=== PATIENT | male | born 1980 | race Two or more races ===

== ENCOUNTER 2023-02-01 14:05 | Outpatient (REF) | payer MEDICAID, OTHER, SELFPAY ==
--- NOTE | ~2023-02-01 | XR_ITS ---
EXAMINATION: XR KNEE, RIGHT CLINICAL INFORMATION: Pain. Injury 2 days ago. COMPARISON: None available. TECHNIQUE: Four views of the right knee. FINDINGS: No acute fractures or subluxation. Mild tricompartmental joint space narrowing with minimal subcortical sclerosis, most prominent in the medial compartment. No chondrocalcinosis or erosions. Small joint effusion. No significant soft tissue abnormality. XR/XR knee RT 4V IMPRESSION: 1. No acute fractures or subluxation. 2. Mild tricompartmental osteoarthritis. 3. Small joint effusion.
== END 2023-02-01 14:06 | disposition home or self-care (01) ==
LOC: HO.HHCX 14:05
PROVIDERS: Visit Provider Emergency Medicine
DX: M23.91 Unspecified internal derangement of right knee (principal)
CPT/HCPCS: 73564

== ENCOUNTER 2023-03-29 13:32 | Outpatient (REF) | payer MEDICAID, OTHER, SELFPAY | END 2023-03-29 13:33 | disposition home or self-care (01) | LOC: HO.LAB 13:32 | PROVIDERS: PCP Family Medicine; Visit Provider Family Medicine | DX: R10.11 Right upper quadrant pain (principal) | CPT/HCPCS: 76700 ==

== ENCOUNTER 2023-03-29 13:45 | Outpatient (REF) | payer MEDICAID, OTHER, SELFPAY ==
[2023-03-29 17:15] LABS: Alanine Aminotransferase 17 U/L (0-40); Albumin Level 4.1 g/dL (3.5-5.0); Alkaline Phosphatase 66 U/L (39-117); Amylase 58 U/L (28-100); Anion Gap 14 (12-20); Aspartate Amino Transferase 25 U/L (5-37); Bilirubin Direct 0.3 mg/dL (0.0-0.5); Bilirubin Total 0.7 mg/dL (0.0-1.0); Blood Urea Nitrogen 16 mg/dL (9-16); Calcium 9.6 mg/dL (8.4-10.2); Carbon Dioxide 25 mmol/L (22-29); Chloride 106 mmol/L (96-108); Cholesterol 142 mg/dL; Estimated Glomerular Filt Rate > 60; Glucose Random 87 mg/dL (60-115); HDL Cholesterol 40 mg/dL; LDL Cholesterol Calculated 93 mg/dl; Lipase 17 U/L (8-78); Potassium 4.6 mmol/L (3.3-5.1); Sodium 140 mmol/L (135-145); Triglycerides 48 mg/dL
[2023-03-29 17:34] LABS: Free T4 (Free Thyroxine) 1.16 ng/dL (0.71-1.85); Thyroid Stimulating Hormone 0.62 uIU/mL (0.32-4.0); Vitamin D 25-OH Total 32.8 ng/mL (>30)
== END 2023-03-29 13:46 | disposition home or self-care (01) ==
LOC: HO.US 13:45
PROVIDERS: PCP Family Medicine; Visit Provider Family Medicine
DX: Z11.4 Encounter for screening for human immunodeficiency virus [HIV] (principal); R10.11 Right upper quadrant pain
CPT/HCPCS: 0353U; 76700; 80048; 80061; 80076; 82150; 82306; 83036; 83690; 84439; 84443; 85025; 86706; 86708; 86709; 86780; 86803; 87340; 87389

== ENCOUNTER 2023-06-01 17:53 | Outpatient (REF) | payer MEDICAID, OTHER, SELFPAY ==
[2023-06-01 18:55] LABS: Influenza A PCR NEGATIVE (Negative); Influenza B PCR NEGATIVE (Negative); Resp Syncy Virus RNA Qual PCR NEGATIVE (Negative); SARS COV2 PCR INHOUSE NEGATIVE (Negative)
== END 2023-06-01 17:54 | disposition home or self-care (01) ==
LOC: HO.LNP 17:53
PROVIDERS: Visit Provider Family Medicine
DX: Z20.822 Contact with and (suspected) exposure to COVID-19 (principal); J06.9 Acute upper respiratory infection, unspecified
CPT/HCPCS: 0241U

== ENCOUNTER 2023-07-17 14:48 | Outpatient (REF) | payer MEDICAID, OTHER, SELFPAY ==
--- NOTE | ~2023-07-17 | XR_ITS ---
EXAMINATION: XR CHEST CLINICAL INFORMATION: Chest pain. COMPARISON: None available. TECHNIQUE: 2 views of the chest were obtained. FINDINGS: The cardiomediastinal silhouette is normal. There is no focal lung consolidation or pleural effusion. The bony structures and soft tissues are unremarkable. XR/XR chest 2V IMPRESSION: No evidence for active cardiopulmonary disease.
== END 2023-07-17 14:49 | disposition home or self-care (01) ==
LOC: HO.HHCX 14:48
PROVIDERS: Visit Provider Emergency Medicine
DX: R07.89 Other chest pain (principal)
CPT/HCPCS: 71046

== ENCOUNTER 2023-07-24 12:54 | Outpatient (REF) | payer MEDICAID, OTHER, SELFPAY ==
--- NOTE | ~2023-07-24 | XR_ITS ---
EXAMINATION: XR KNEE, RIGHT CLINICAL INFORMATION: Right knee pain COMPARISON: Right knee radiograph from 02/01/2023 TECHNIQUE: Four views of the right knee. FINDINGS: No acute visible fracture or dislocation. Mild multicompartment degenerative changes. Mild narrowing medial femorotibial compartment. Joint space alignment are otherwise maintained. Trace knee joint effusion. Soft tissues are unremarkable. XR/XR knee RT 3V IMPRESSION: 1. No acute visible fracture or dislocation. 2. Mild multicompartment degenerative changes. 3. Trace knee joint effusion.
== END 2023-07-24 12:55 | disposition home or self-care (01) ==
LOC: HO.HHCX 12:54
PROVIDERS: Visit Provider Family Medicine
DX: M25.561 Pain in right knee (principal); G89.29 Other chronic pain
CPT/HCPCS: 73562

== ENCOUNTER 2023-08-21 12:42 | Outpatient (REF) | payer MEDICAID, OTHER, SELFPAY ==
--- NOTE | ~2023-08-21 | US_ITS ---
EXAMINATION: US SCROTUM CLINICAL INFORMATION: Right scrotal mass. COMPARISON: None available. TECHNIQUE: A sonogram of the scrotum was performed assessing branham-scale appearance and color Doppler flow. Spectral Doppler analysis of the arterial and venous flow were performed in the testes bilaterally. FINDINGS: RIGHT: Right testicle measures 4.8 x 1.9 x 3.0 cm, volume 14.8 mL. No focal testicular parenchymal lesions are visualized. Spectral Doppler analysis of the arterial and venous flow is normal in the right testis. 1.4 x 1.3 x 1.5 cm complex cyst with diffuse low-level internal echoes in the region of the right epididymal head. Right varicocele. No right hydrocele is seen. Right epididymal Doppler flow is normal. LEFT: Left testicle measures 4.4 x 1.7 x 2.6 cm, volume 10.3 mL. No focal testicular parenchymal lesions are visualized. Spectral Doppler analysis of the arterial and venous flow is normal in the left testis. Small 0.3 cm cyst left epididymal head. No left hydrocele or varicocele is seen. Left epididymal Doppler flow is normal. ADDITIONAL FINDINGS: Targeted ultrasound images were obtained by the earth science professor of the area of concern as indicated by the patient in the LEFT inguinal region demonstrate no discrete hernia or mass. Radiologist was not in attendance. Images were later provided for interpretation. US/US scrotum IMPRESSION: 1. Complex 1.5 cm cyst in the region of the right epididymal head. Tiny left epididymal head cysts. 2. Right varicocele. 3. No discrete hernia or mass identified in the area of concern indicated by the patient left inguinal region. CT scan could be considered for further evaluation.
== END 2023-08-21 12:43 | disposition home or self-care (01) ==
LOC: HO.US 12:42
PROVIDERS: PCP Family Medicine; Visit Provider Family Medicine
DX: N50.89 Other specified disorders of the male genital organs (principal)
CPT/HCPCS: 76870

== ENCOUNTER 2023-09-03 08:36 | Outpatient (REF) | payer MEDICAID, OTHER, SELFPAY ==
--- NOTE | ~2023-09-03 | CT_ITS ---
EXAMINATION: CT ABDOMEN WITH CONTRAST CLINICAL INFORMATION: Right upper quadrant abdominal pain. COMPARISON: Abdominal ultrasound 03/29/2023. TECHNIQUE: Contiguous axial thin section helical images of the abdomen were performed following the administration of oral contrast and 85 mL of Omnipaque 350 intravenous contrast. The data set was reformatted in the coronal and sagittal planes and reviewed on an independent workstation. This CT examination was performed using dose optimization techniques as appropriate, variously including the following: *Automated exposure control *Adjustment of mA and/or kV according to patient size (this includes techniques or standardized protocols for targeted exams where dose is matched to indication/reason for exam; i.e. extremities or head) *Use of iterative reconstruction technique DLP: 182 mGy-cm FINDINGS: LUNG BASES: No suspicious lung nodules. LIVER, GALLBLADDER, AND BILIARY TREE: The liver is homogeneous in attenuation. No suspicious liver mass. No biliary ductal dilatation. The gallbladder appears normal with no radiopaque gallstones. Common bile duct is normal in caliber. PANCREAS: No discrete pancreatic mass. No pancreatic ductal dilatation. No peripancreatic inflammation. SPLEEN: Normal size. No focal abnormality. ADRENAL GLANDS AND KIDNEYS: No adrenal mass. BOWEL LOOPS: Mild thickening and edema at the GE junction. Included segments of small and large bowel are normal in caliber. LYMPH NODES: No adenopathy. VASCULAR: No aortic aneurysm. Minimal infrarenal atherosclerosis. BONES: Mild degenerative changes in the lumbar spine. CT/CT abdomen w IV con IMPRESSION: Mild thickening and edema at the gastroesophageal junction may relate to esophagitis. Recommend endoscopy to exclude underlying lesion. Otherwise no acute findings in the abdomen. Fleischner guidelines were followed.
[2023-09-03] MEDS: iohexoL 350 MG/ML 100 ML INFUS..BTL 85 ML IV (10:35)
[2023-09-03] MEDS: Barium Sulfate Oral (Vanilla) 450 ML ORAL.SUSP 900 ML PO (10:37)
== END 2023-09-03 08:37 | disposition home or self-care (01) ==
LOC: HO.CT 08:36
PROVIDERS: PCP Family Medicine; Visit Provider Family Medicine
DX: R10.11 Right upper quadrant pain (principal)
CPT/HCPCS: 74160; Q9967

== ENCOUNTER 2023-10-19 10:22 | Outpatient (REF) | payer MEDICAID, OTHER, SELFPAY ==
[2023-10-19 12:54] LABS: HBS Num1 7.91 mIU/mL (0-7.99); ~Hepatitis B Surface Antibody NONREACTIVE (Nonreactive)
[2023-10-22 12:38] LABS: TS Negative Control Passed; TS Panel A 0; TS Panel B 1; TS Positive Control Passed; TSpotTB Negative (Negative)
[2023-10-23 02:48] LABS: Rubeola IgG (Measles) >300.00 AU/mL
[2023-10-23 13:51] LABS: H Pylori Breath Test Positive (Negative)
== END 2023-10-19 10:23 | disposition home or self-care (01) ==
LOC: HO.HHCL 10:22
PROVIDERS: Visit Provider Family Medicine
DX: Z00.00 Encounter for general adult medical examination without abnormal findings (principal); R10.11 Right upper quadrant pain
CPT/HCPCS: 36415; 83013; 86481; 86706; 86735; 86762; 86765; 86787

== ENCOUNTER 2023-12-06 15:06 | Outpatient (REF) | payer MEDICAID, OTHER, SELFPAY ==
--- NOTE | ~2023-12-06 | CT_ITS ---
EXAMINATION: CT CHEST WITH CONTRAST CLINICAL INFORMATION: Upper lobe nodules COMPARISON: Chest radiograph from 07/17/2023 TECHNIQUE: Multidetector volumetric CT imaging of the chest was obtained after the administration of 50 mL of Omnipaque 350 intravenous contrast without immediate adverse reactions. Axial MIP volume rendering provided. Sagittal and coronal reformatted images were obtained. This CT examination was performed using dose optimization techniques as appropriate, variously including the following: *Automated exposure control *Adjustment of mA and/or kV according to patient size (this includes techniques or standardized protocols for targeted exams where dose is matched to indication/reason for exam; i.e. extremities or head) *Use of iterative reconstruction technique DLP: 507 mGy-cm FINDINGS: LUNGS/PLEURA: Emphysematous changes. Peripheral reticular nodular opacities. 2 mm linear nodular focus anterior lateral aspect right lung apex (series 5, image 25). 2 mm pleural-based nodular focus left upper lobe laterally (series 5, image 71). Central airways are patent. No pneumothorax. No large pleural effusion. Bibasilar atelectasis. MEDIASTINUM: Heart is not enlarged. No pericardial effusion. No coronary artery calcifications. Aorta is nonaneurysmal and demonstrates atherosclerotic calcifications. Main pulmonary artery is not enlarged. No enlarged lymph nodes per size criteria. Visualized portions of the thyroid are unremarkable. AXILLA: No lymphadenopathy. UPPER ABDOMEN: Decreased hepatic attenuation suggesting hepatic steatosis. Small hiatal hernia. OSSEOUS STRUCTURES: Multilevel degenerative changes of the thoracolumbar spine. CT/CT chest w IV con IMPRESSION: 1. 2 mm linear nodular focus anterior lateral aspect right lung apex. 2 mm pleural-based nodular focus left upper lobe laterally. Follow-up as per Fleischner criteria. 2. Decreased hepatic attenuation suggesting hepatic steatosis. 3. Small hiatal hernia. Various management parameters for solitary pulmonary nodules are in the literature. According to the Fleischner Society, recommendations for pulmonary nodules are as follows: According to the UPDATED 2017 Fleischner Society recommendations, the advised follow-up imaging for solid nodules < 6 mm is: HIGH RISK PATIENT: Optional CT at 12 months.
--- NOTE | ~2023-12-06 | CT_ITS ---
EXAMINATION: CT PELVIS WITH CONTRAST CLINICAL INFORMATION: Scrotal mass with complex cyst COMPARISON: CT abdomen from 09/03/2023, ultrasound scrotum from 10/13/2022 TECHNIQUE: Helical scanning was performed with submillimeter collimation through the pelvis with the use of oral contrast and during bolus intravenous injection of 100 mL of Omnipaque 350 intravenous contrast. Sagittal and coronal multiplanar 2-D reconstructions were obtained. This CT examination was performed using dose optimization techniques as appropriate, variously including the following: *Automated exposure control *Adjustment of mA and/or kV according to patient size (this includes techniques or standardized protocols for targeted exams where dose is matched to indication/reason for exam; i.e. extremities or head) *Use of iterative reconstruction technique DLP: 507 mGy-cm FINDINGS: PELVIS: Visualized small and large bowel are unremarkable. Visualized portions of the appendix are unremarkable. Urinary bladder is unremarkable. Prostate measures 2.2 cm. No hernia identified. Abdominal aorta is nonaneurysmal. No lymphadenopathy noted. The scrotal/testicular parenchyma is not well evaluated on current imaging modality and better evaluated with ultrasound imaging. OSSEOUS STRUCTURES: Multilevel degenerative changes of the lumbosacral spine greatest at L4-L5. CT/CT pelvis w IV con IMPRESSION: 1. No acute process of the pelvis identified. 2. No hernia identified. 3. Scrotal/testicular parenchyma is not well evaluated on current imaging modality and better evaluated with ultrasound imaging.
[2023-12-06] MEDS: iohexoL 350 MG/ML 100 ML INFUS..BTL 85 ML IV (16:15)
== END 2023-12-06 15:07 | disposition home or self-care (01) ==
LOC: HO.CT 15:06
PROVIDERS: PCP Family Medicine; Visit Provider Internal Medicine
DX: N50.89 Other specified disorders of the male genital organs (principal); R93.89 Abnormal findings on diagnostic imaging of other specified body structures
CPT/HCPCS: 71260; 72193; Q9967

== ENCOUNTER 2024-05-08 11:42 | Outpatient (REF) | payer MEDICAID, OTHER, SELFPAY ==
[2024-05-08 13:15] LABS: Hemoglobin 13.9 g/dl (14.0-18.0); Mean Corpuscular HGB Conc 33.9 g/dl (31.0-36.0); Mean Corpuscular Volume 88.4 fL (80.0-98.0); Mean Platelet Volume 11.1 fL (9.4-12.4); Platelet Count 212 X10*3/uL (160-400); Red Blood Count 4.64 X10*6/uL (4.60-5.80); Red Cell Distribution Width 12.5 % (11.0-16.0); White Blood Count 6.8 X10*3/uL (4.8-10.8)
[2024-05-08 13:45] LABS: Creatinine Urine 140.52 mg/dL; Estimated Average Glucose 97 mg/dL; Microalbum/Creatinine Ratio Ur 17.7 ug/mg cr (<30)
[2024-05-08 13:49] LABS: Alanine Aminotransferase 20 U/L (0-40); Albumin Level 4.4 g/dL (3.5-5.0); Alkaline Phosphatase 56 U/L (39-117); Anion Gap 13 (12-20); Aspartate Amino Transferase 22 U/L (5-37); Bilirubin Direct 0.2 mg/dL (0.0-0.5); Bilirubin Total 0.6 mg/dL (0.0-1.0); Blood Urea Nitrogen 14 mg/dL (9-16); Calcium 9.5 mg/dL (8.4-10.2); Carbon Dioxide 25 mmol/L (22-29); Chloride 106 mmol/L (96-108); Cholesterol 137 mg/dL (<200); Estimated Glomerular Filt Rate > 60; Glucose Random 104 mg/dL (60-115); HDL Cholesterol 47 mg/dL (>40); LDL Cholesterol Calculated 77 mg/dL (<100); Sodium 140 mmol/L (135-145); Total Protein 6.8 g/dL (6.5-8.0); Triglycerides 65 mg/dL (<150)
[2024-05-08 14:06] LABS: Free T4 (Free Thyroxine) 1.01 ng/dL (0.71-1.85); Thyroid Stimulating Hormone 0.72 uIU/mL (0.32-4.0); Vitamin D 25-OH Total 44.2 ng/mL (>30)
[2024-05-09 04:02] LABS: HBS Num1 3.73 mIU/mL (0-7.99); HBsAGNum1 0.44 S/CO (0.00-0.99); HIV AB/AG Nonreactive (Nonreactive); HIV Num 1 0.05 S/CO (0.00-0.99); Hepatitis B Surface Antigen Negative (Negative); ~HepC Num1 0.14 S/CO (0.00-0.79); ~Hepatitis B Surface Antibody NONREACTIVE (Nonreactive); ~Hepatitis C Antibody Nonreactive (Nonreactive)
[2024-05-09 14:42] LABS: RPR Rapid Plasma Reagin NON-REACTIVE (NON-REACTIVE)
== END 2024-05-08 11:43 | disposition home or self-care (01) ==
LOC: HO.HHCL 11:42
PROVIDERS: Visit Provider Family Medicine
DX: Z00.00 Encounter for general adult medical examination without abnormal findings (principal); F43.10 Post-traumatic stress disorder, unspecified; N50.3 Cyst of epididymis; F17.200 Nicotine dependence, unspecified, uncomplicated; R91.8 Other nonspecific abnormal finding of lung field; R22.1 Localized swelling, mass and lump, neck; Z86.19 Personal history of other infectious and parasitic diseases; B07.0 Plantar wart; M25.511 Pain in right shoulder; R63.4 Abnormal weight loss; J34.2 Deviated nasal septum
CPT/HCPCS: 36415; 80048; 80061; 80076; 82043; 82306; 82570; 83036; 84439; 84443; 85027; 86592; 86706; 86803; 87340; 87389

== ENCOUNTER 2024-05-12 15:20 | Outpatient (REF) | payer MEDICAID, OTHER, SELFPAY | END 2024-05-12 15:21 | disposition home or self-care (01) | LOC: HO.HHCL 15:20 | PROVIDERS: Visit Provider Family Medicine | DX: Z86.19 Personal history of other infectious and parasitic diseases (principal) | CPT/HCPCS: 87338 ==

== ENCOUNTER 2025-05-12 15:23 | Outpatient (AMB) | payer OTHER, SELFPAY ==
--- NOTE | 2025-05-12 15:33 | A.OFFVIS_ITS ---
Vital Signs 05/12/25 15:38 Height 5 ft 6 in Weight 192 lb BMI 31.0 BP 140/88 H Blood Pressure Location Rt brachial Position Sitting Pulse 74 Intake Visit Reasons: (R) groin pain Intake Note: Patient is seen in office for evaluation of right groin pain. Reports pain started about 4m ago. Pt c/o:constant lifting patients at work. CT pelvis:12/06/23 Graphite Pan Drier Tender Required: No Accompanied by: spouse Zacarias Murillo Allergies No Known Allergies Allergy (Verified 05/12/25 15:34) HPI Comments Details: 45-year-old male patient presenting with complaints of abdominal pain in the right lower quadrant presenting today for evaluation for possible right inguinal hernia. 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 Lifting causes increased pain in the right groin. He denies feeling or seeing a lump in the groin. He denies associated symptoms including nausea, vomiting, diarrhea, constipation, fever or chills. He denies a previous history of hernias or hernia surgery. The pain does seem to extend into the testicle but he has a known right varicocele. CT abdomen and pelvis performed in 2023 revealed no evidence of an inguinal hernia on either side. [facility] Family History Mother Lymph node cancer Social History Tobacco use type: Cigarette Cigarettes Per Day: 20 Review of Systems Const All systems reviewed & are unremarkable except as noted in HPI and below Physical Exam Vital Signs: Last Vital Signs Pulse 74 05/12/25 15:38 BP 140/88 H 05/12/25 15:38 BMI result Body Mass Index 31.0 Const General: cooperative and no acute distress Nutritional Appearance: well nourished Orientation/consciousness: patient oriented x3 Limitations: no limitations HEENT Head: Yes normocephalic and Yes atraumatic Ears: hearing grossly normal bilaterally Resp Effort & Inspection: normal respiratory effort, no audible wheezes, no cough and no respiratory distress Cardio Jugular venous distension: no JVD GI Other: Soft and nondistended, tender along the rectus muscle laterally. Examination in the standing position with Valsalva maneuvers revealed no palpable hernia on either side. There is tenderness slightly higher than the internal ring suggestive of a muscle strain. Varicocele is also palpable in the right scrotum. Inspection: Yes normal to inspection Skin Other: Warm, dry, no rash Neuro General: patient oriented x3 Extrem General: Yes no clubbing, cyanosis or edema Assessment & Plan Assessment & Plan (1) Strain of right groin: Code(s): S76.211A - Strain of adductor muscle, fascia and tendon of right thigh, initial encounter Category: Medical Plan 45-year-old male patient presenting with complaints of pain in the right groin noted with lifting heavy objects and patient's. Previous workup with CT abdomen and pelvis was negative for a hernia. Examination today revealed no palpable hernia on either side by tenderness noted mainly in the muscular regions especially the lateral rectus muscle. Findings are suggestive of a muscle strain. No surgical intervention is recommended. We will refer him to urology for further evaluation of the varicocele. Orders: Referrals Urology Referral I86.1 - Scrotal varices Coding Level of Care Code New Pt Level 4 (60944) Diagnoses Strain of right groin S76.211A
[2025-05-12 15:38] VITALS: BP 140/88; PULSE 74; BMI 31.0
--- OUTSIDE RECORDS SUMMARY | 2025-05-12 16:40 | XMS_ITS | Clinical Summary ---
Author Organization [facility] Address [address] [place] [address] Care Team Providers Care Tax Collector Name Role Phone Nayeli Bansal Primary Care Provider [phone] Allergies No known active allergies Medications multivitamin capsule Take 1 capsule by mouth once a day. Active aspirin chewable tablet 81 mg Chew and swallow 81 mg by mouth as needed for pain. Active Active Problems Problem Noted Date Diagnosed Date Varicocele 08/27/2023 Assessment & Plan (08/27/2023 2:45 PM EST): The patient has a varicocele and epididymal cysts as seen on ultrasound. I have asked him to speak with his primary care about a referral to urology for these. I did examine his bilateral groin area as he was sent over for possible hernia. There is no hernia on exam. The bilateral groin areas feel very solid in the direct and indirect spaces. The ultrasound also did not show groin hernias. The patient was reassured and he will ask his primary care for referral to urology. He prefers a urologist closer to home. All of his questions were answered today. Thank you for allowing us to participate in his care. I did discuss this case today with Dr. Woods and he is in agreement with the plan for referral to urology. Epididymal cyst 08/27/2023 Encounters Date Type Department Care Team Description 03/04/2025 Transcribe Orders [facility] Physician Referral [facility] [address] [place] [address] Nayeli Bansal Right groin pain (Primary Dx); Inguinal bulge from Last 3 Months Family History Medical History Relation Name Comments No Known Problems Father Cancer Mother Relation Name Status Comments Father Mother Social History Tobacco Use Types Packs/Day Years Used Date Smoking Tobacco: Every Day Cigarettes 0.5 20 Smokeless Tobacco: Never Tobacco Cessation:Ready to Q uit: Not Asked; Counseling Given: Not Answered Alcohol Use Standard Drinks/Week Comments Never 0 (1 standard drink = 0.6 oz pur e alcohol) Sex and Gender Information Value Date Recorded Sex Assigned at Male 04/21/2024 2:40 PM EDT Legal Sex Male 10:24 AM EDT Gender Identity Not on file Sexual Orientation Not on file Last Filed Vital Signs Vital Sign Reading Time Taken Comments Blood Pressure 115/66 10/15/2023 5:01 PM EST Pulse 63 10/15/2023 5:01 PM EST Temperature 36.5 C (97.7 F) 10/15/2023 4:36 PM EST Respiratory Rate 18 10/15/2023 5:01 PM EST Oxygen Saturation 100% 10/15/2023 5:01 PM EST Inhaled Oxygen Concentration - - Weight 82 kg (180 lb 12.4 oz) 10/15/2023 3:00 PM EST Height 172 cm (5' 7.72 ) 10/15/2023 3:00 PM EST Body Mass Index 27.72 10/15/2023 3:00 PM EST Plan of Treatment Health Maintenance Due Date Last Done Comments Cologuard 1980 Colonoscopy 1980 Sigmoidoscopy 1980 Pneumococcal Vaccine: Pediat soo (0-5 Years) and At-Risk Patients (6-50 Years) (1 of 2 - PCV) 1999 DTaP,Tdap,and Td Vaccines (1 - Tdap) 07/05/202206/24 Hepatitis B Vaccines (2 of 3 - 19+ 3-dose series) 08/01/2022 07/04/2022 Varicella Vaccines (2 of 2 - 13+ 2-dose series) 08/01/2022 07/04/2022 COVID-19 Vaccine (2 - 2023- season) 2024 Alcohol/Substance Use Screening 09/24/2024 Depression Screening and Follow-Up 09/24/2024 Social Drivers of Health Annual Screening 09/24/2024 Colon Cancer Screening 05/08/2025 FOBT / Fit Test 05/08/2025 05/08/2024 Influenza Vaccine (#1) 2025 11/22/2023 RSV Vaccine (60+ years old a nd patients) (1 - 1-dose 75+ series) 2055 HIV Screening Completed 05/08/2024, 05/08/2024 Hepatitis C Screening Completed 05/08/2024 Insurance [facility] HSNO/FREE CARE Care Teams Tax Collector Relationship Specialty Start Date End Date Nayeli Bansal [address] [place] [id number] PCP - General Family Medicine 07/27/23
--- OUTSIDE RECORDS SUMMARY | 2025-05-12 16:40 | XMS_ITS | Encounter Summary ---
Author Organization [employer] Address [address] [facility] [address] [place] [address] Care Team Providers Care Manufacturing Controls Engineer Name Role Phone Nayeli Bansal DO Primary Care Provider + [phone] Reason for Visit * Reason Comments Med Refill Encounter Details Date Type Department Care Team ([facility] st Contact Info) Description 01/09/2024 Refill [facility] [address] [place], [place] [id number] Nayeli Bansal DO [address] [place], [place] [id number] Social History Tobacco Use Types Packs/Day Years Used Date Smoking Tobacco: Every Day Cigarettes Passive Smoke Exposure: Current Smokeless Tobacco: Never Alcohol Use Standard Drinks/Week Comments Never 0 (1 standard drink = 0.6 oz pur e alcohol) Housing Stability Answer Date Recorded What is your housing situation today? I have juan carroll 07/16/[address] you li ve. Do you have problems with any of the following? None of the above 07/16/2023 Food Insecurity Answer Date Recorded Within the past 12 months, y ou worried that your food would run out before you got money to buy more: Never True 07/16/2023 Within the past 12 months,th e food you bought just didn't last and you didn't have enough money to get more: Never True Transportation Answer Date Recorded In the past 12 months, has l ack of transportation kept you from medical appts, meetings, work or from getting things needed for daily living? Yes, it has kept me from medical appointments or getting medications. 07/04/2023 Utilities Answer Date Recorded In the past 12 months, has t he electric, gas, oil or water company threatened to shut off services in your home? No 07/16/2023 Depression Answer Date Recorded Patient Health Questionnaire-2 Score 0 02/05/2023 Sex and Gender Information Value Date Recorded Sex Assigned at Male 01/26/2023 8:18 AM EDT Legal Sex Male 8:14 AM EDT Gender Identity Male 01/26/2023 8:18 AM EDT Sexual Orientation [place] 02/09/2023 5: 44 AM EDT documented as of this encounter Plan of Treatment Not on file documented as of this encounter Visit Diagnoses Not on filedocumented in this encounter Care Teams Manufacturing Controls Engineer Relationship Specialty Start Date End Date Nayeli Bansal DO [address] [place] [id number] PCP - General Family Medicine 07/24/23 documented as of this encounter
== END 2025-05-13 10:42 | disposition home or self-care (01) ==
LOC: HO.HGS 15:24
PROVIDERS: PCP Family Medicine; Visit Provider Surgery
DX: S76.211A Strain of adductor muscle, fascia and tendon of right thigh, initial encounter (principal)
CPT/HCPCS: 99204